=== PATIENT | female | born 1995 | race Caucasian/White ===

== ENCOUNTER → 2020-09-27 15:32 | Outpatient (CLI) | payer OTHER, SELFPAY ==
--- NOTE | 2020-09-27 15:33 | DI.RAD.S_ITS ---
PROCEDURE: XR ANKLE LT MIN 3V INDICATIONS: rolled ankle r/o fx TECHNIQUE: 3 views of the ankle were acquired. COMPARISON: None. FINDINGS: Bones: No fractures or dislocations. Ankle mortise is normally aligned. No suspicious bony lesions. Soft tissues: No tibiotalar joint effusion. Achilles tendon appears normal. IMPRESSION: No trauma Dictated by: Caleb Lancaster M.D. on 09/27/2020 at 16:01 Approved by: Caleb Lancaster M.D. on 09/27/2020 at 16:02
--- NOTE | 2020-09-27 15:33 | DI.RAD.S_ITS ---
PROCEDURE: XR FOOT LT MIN 3V INDICATIONS: rolled ankle r/o fx TECHNIQUE: 3 views of the foot were acquired. COMPARISON: None. FINDINGS: Bones: No fractures or dislocations. No suspicious bony lesions. Soft tissues: No tibiotalar joint effusion. Achilles tendon appears normal. IMPRESSION: No trauma. Dictated by: Caleb Lancaster M.D. on 09/27/2020 at 16:02 Approved by: Caleb Lancaster M.D. on 09/27/2020 at 16:02
== END ==
PROVIDERS: PCP Internal Medicine; Referring Provider Physician Assistant; Visit Provider Physician Assistant
DX: S99.912A Unspecified injury of left ankle, initial encounter (principal); X58.XXXA Exposure to other specified factors, initial encounter
CPT/HCPCS: 73610; 73630